=== PATIENT | female | born 1985 | race Caucasian/White ===

== ENCOUNTER → 2016-06-21 | Outpatient (CLI) | payer OTHER ==
[~2016-06-21] MED LIST: CEPHALEXIN500 M1 PO; ELIMITE 5%60 GM T; NAPROSYN500 MG PO; PREDNICOT10 MG PO; RANITIDINE300 MG PO
== END | disposition home or self-care (01) ==
LOC: US 14:40
DX: R19.8 Other specified symptoms and signs involving the digestive system and abdomen (principal); R10.2 Pelvic and perineal pain

== ENCOUNTER 2017-01-01 11:08 | Inpatient (IN) | payer OTHER ==
[~2017-01-01] VITALS: Ht 154.9 cm; Wt 80.9 kg
--- NOTE | ~2017-01-01 | O ---
[place], [place] OPERATIVE NOTE NAME: JAMIE FORTUNE UNIT #: [id number] ROOM: 503 DOCTOR: TE TORRES MD BIRTHDATE: [birth year] DOS: 01/02/2017 PREOPERATIVE DIAGNOSIS: Acute cholecystitis. POSTOPERATIVE DIAGNOSIS: Acute cholecystitis. PROCEDURE: Laparoscopic cholecystectomy. SURGEON: Te Torres MD GENERAL ASSEMBLER: GARLAND. ANESTHESIA: General with endotracheal intubation. INDICATIONS: This is a 31-year-old lady with history of right upper quadrant and lower chest pain who was diagnosed with acute cholecystitis. It was decided to take the patient to the operating room for the above-mentioned procedure. The procedure and its complications were explained to the patient in detail preoperatively. Complications that were discussed included but were not limited to bleeding, infection, hematoma/seroma/abscess formation, prolonged postoperative pain, damage to underlying vital structures, inadvertent injury to the common bile duct, incisional hernia formation, biloma formation and she agreed to proceed. DESCRIPTION OF PROCEDURE: After identifying the patient, the patient was brought to the operating suite and laid in the supine position. After induction of general anesthesia, the parts were then painted and draped in the usual sterile fashion. A time-out procedure was called. An incision was made below the umbilicus in a transverse fashion. The skin and the subcutaneous tissue were incised in the line of the incision. The fascia was grasped and incised vertically and 2 stay sutures were taken on either side. The peritoneum was opened and a 12 mm Randall port was introduced into the peritoneal cavity. Under direct vision, an epigastric incision of 10 mm and two 5 mm incisions were made in the right upper quadrant and appropriate size ports were introduced. The gallbladder was found to be extremely edematous and acutely inflamed. In order to better grasp the gallbladder, approximately 20 mL of thick bile was aspirated and sent for microbiological examination. Thereafter, the gallbladder was retracted superiorly and laterally. The cystic duct and the cystic artery were meticulously dissected. Thereafter, each of these structures was clipped 3 times and cut between the first and the second clip. The gallbladder was then removed from the bed of the gallbladder with the help of electrocautery. It was placed in an EndoCatch bag and removed from the peritoneal cavity and sent for histopathological diagnosis. Copious amounts of saline was used for irrigation and hemostasis was achieved in the liver bed with the help of electrocautery. Thereafter, 2 sheaths of Surgicel were placed in the liver bed in order to better achieve hemostasis after the procedure. The area was irrigated again and hemostasis was confirmed. A 19-Surinamese round Karlos-Diamond drain was inserted via the epigastric incision and placed in the gallbladder fossa and it was sutured to the overlying skin with the help of 4-0 nylon in interrupted fashion. Thereafter, the right upper quadrant 5 mm ports were removed and there was no [place], [place] OPERATIVE NOTE NAME: JAMIE FORTUNE UNIT #: [id number] ROOM: [facility] DOCTOR: TE TORRES MD BIRTHDATE: [birth year] bleeding seen. The umbilical port was also removed and the pneumoperitoneum was decompressed. The fascial defect was approximated with the help of a [id number] 0 Vicryl stitch. The skin edges were then approximated after local anesthesia was infiltrated with 4-0 Vicryl in a subcuticular running fashion. Dressings were placed in all the 4 incisions and the patient was extubated uneventfully and brought back to the recovery room in a stable fashion. There were no complications. Blood loss was [address] Te Torres, the attending surgeon, was present throughout the operating case. Te Torres MD CM:OPRECORD:OPERATIVE NOTE [id number] TE TORRES MD 01/02/171816 interface
[2017-01-01 11:10] VITALS: BP 163/108
[2017-01-01 11:56] LABS: BASO % 0.1 % (0.0-1.0); EOS # 0.1 10*3/uL (0.0-0.4); EOS % 0.7 % (1.0-4.0); HEMOGLOBIN 12.6 g/dl (12.0-16.0); LYMPH # 1.8 10*3/uL (1.3-4.4); LYMPH % 14.7 % (27.0-41.0); MEAN CORPUSCULAR HGB 29.3 pg (27.0-31.0); MEAN CORPUSCULAR HGB CONC 34.1 g/dl (33.0-37.0); MEAN PLATELET VOLUME 8.7 fl (9.6-12.3); MONO % 8.1 % (3.0-9.0); NEUT # 9.5 10*3/uL (2.3-7.9); NEUT % 76.1 % (47.0-73.0); PLATELET COUNT AUTOMATED 374 10*3/uL (130-400); RED CELL DISTRI WIDTH 12.3 % (0-14.5); WHITE BLOOD COUNT 12.5 10*3/uL (4.8-10.8)
[2017-01-01 12:00] VITALS: BP 158/69
[2017-01-01 12:04] LABS: ACT PARTIAL THROMBO TIME 27.1 SECONDS (20.8-31.5); INTERNATIONAL NORM RATIO 0.9 (2.0-3.5)
[2017-01-01 12:16] LABS: ALBUMIN 3.4 gm/dl (3.1-4.5); ALKALINE PHOSPHATASE 193 U/L (45-117); BUN 8 mg/dl (7-24); CHLORIDE 104 mmol/L (98-107); CREATININE 0.68 mg/dL (0.55-1.02); MAGNESIUM 2.2 mg/dL (1.5-2.1); POTASSIUM 3.4 mmol/L (3.5-5.1); SGOT/AST 31 IU/L (3-35); SGPT/ALT 44 U/L (12-78); SODIUM 138 mmol/L (136-145); TOTAL PROTEIN 7.5 gm/dL (6.4-8.2)
[2017-01-01 12:19] LABS: TROPONIN I < 0.015 ng/ml (<0.045)
[2017-01-01 12:30] VITALS: BP 137/91
[2017-01-01 15:19] LABS: BILIRUBIN NEGATIVE (NEGATIVE); BLOOD 1+ (NEGATIVE); CLARITY CLOUDY (CLEAR); COLOR YELLOW (YELLOW); GLUCOSE NEGATIVE (NEGATIVE); KETONE NEGATIVE (NEGATIVE); LEUKO ESTERASE 3+ (NEGATIVE); NITRITE NEGATIVE (NEGATIVE)
[2017-01-01 15:35] VITALS: BP 122/75
[2017-01-01] MEDS ORDERED: GAS-X125 MG PO (15:39)
[2017-01-01] MEDS ORDERED: PERIDEX118 ML MM (15:40)
[2017-01-01 15:51] LABS: EPITHELIAL CELLS 21-30; WBC 16-20 wbc/hpf (0-5)
[2017-01-01 15:52] LABS: BACTERIA 3+
[2017-01-01 17:21] VITALS: BP 125/78
[2017-01-01 20:00] VITALS: BP 134/81
[2017-01-02] VITALS (10 sets, daily range): BP systolic 113–150; BP diastolic 61–86
[2017-01-02 06:47] LABS: BASO % 0.2 % (0.0-1.0); EOS % 0.3 % (1.0-4.0); HEMATOCRIT 35.5 % (37.0-47.0); HEMOGLOBIN 11.9 g/dl (12.0-16.0); LYMPH # 2.1 10*3/uL (1.3-4.4); LYMPH % 17.1 % (27.0-41.0); MEAN CELL VOLUME 87.2 fl (81.0-99.0); MEAN CORPUSCULAR HGB 29.2 pg (27.0-31.0); MEAN CORPUSCULAR HGB CONC 33.5 g/dl (33.0-37.0); MONO # 0.8 10*3/uL (0.1-1.0); MONO % 6.4 % (3.0-9.0); NEUT # 9.2 10*3/uL (2.3-7.9); NEUT % 75.6 % (47.0-73.0); PLATELET COUNT AUTOMATED 361 10*3/uL (130-400); RED BLOOD COUNT 4.07 10*6/uL (4.10-5.10); RED CELL DISTRI WIDTH 12.2 % (0-14.5); WHITE BLOOD COUNT 12.2 10*3/uL (4.8-10.8)
[2017-01-02 06:58] LABS: BUN 6 mg/dl (7-24); CHLORIDE 104 mmol/L (98-107); CHOLESTEROL 209 mg/dL (<200); CREATININE 0.59 mg/dL (0.55-1.02); FREE T4 1.17 ng/dl (0.76-1.46); HDL CHOLESTEROL 42 mg/dl (40-60); LDL CHOLESTEROL 153 mg/dL (9-159); MAGNESIUM 1.9 mg/dL (1.5-2.1); PHOSPHOROUS 2.1 mg/dL (2.5-4.9); POTASSIUM 3.7 mmol/L (3.5-5.1); SODIUM 137 mmol/L (136-145); TRIGLYCERIDES 72 mg/dl (<150); VLDL CHOLESTEROL 14 mg/dL (6-40)
[2017-01-02 07:14] LABS: VITAMIN D, 25-HYDROXY 15.2 ng/mL (30-100)
[2017-01-02 17:14] LABS: HEMATOCRIT 34.4 % (37.0-47.0); HEMOGLOBIN 11.3 g/dl (12.0-16.0); MEAN CELL VOLUME 87.8 fl (81.0-99.0); MEAN CORPUSCULAR HGB 28.8 pg (27.0-31.0); MEAN CORPUSCULAR HGB CONC 32.8 g/dl (33.0-37.0); PLATELET COUNT AUTOMATED 402 10*3/uL (130-400); RED BLOOD COUNT 3.92 10*6/uL (4.10-5.10); RED CELL DISTRI WIDTH 12.3 % (0-14.5); WHITE BLOOD COUNT 15.5 10*3/uL (4.8-10.8)
[2017-01-02 17:30] LABS: ALBUMIN 2.6 gm/dl (3.1-4.5); ALKALINE PHOSPHATASE 193 U/L (45-117); BUN 6 mg/dl (7-24); CHLORIDE 106 mmol/L (98-107); CREATININE 0.62 mg/dL (0.55-1.02); POTASSIUM 4.2 mmol/L (3.5-5.1); SGOT/AST 90 IU/L (3-35); SGPT/ALT 75 U/L (12-78); SODIUM 138 mmol/L (136-145); TOTAL PROTEIN 6.9 gm/dL (6.4-8.2)
[2017-01-02 17:33] LABS: PLATELET SUFFICIENCY HIGH (NORMAL); TOTAL CELLS COUNTED 100 #CELLS
[2017-01-02 17:34] LABS: POLYCHROMASIA SLIGHT
[2017-01-03] VITALS: BP 134/83
[2017-01-03 06:30] LABS: HEMATOCRIT 28.8 % (37.0-47.0); HEMOGLOBIN 9.6 g/dl (12.0-16.0); LYMPH # 1.4 10*3/uL (1.3-4.4); LYMPH % 12.4 % (27.0-41.0); MEAN CELL VOLUME 87.3 fl (81.0-99.0); MEAN CORPUSCULAR HGB 29.1 pg (27.0-31.0); MEAN CORPUSCULAR HGB CONC 33.3 g/dl (33.0-37.0); MEAN PLATELET VOLUME 9.2 fl (9.6-12.3); MONO # 0.7 10*3/uL (0.1-1.0); MONO % 6.5 % (3.0-9.0); NEUT % 80.5 % (47.0-73.0); PLATELET COUNT AUTOMATED 388 10*3/uL (130-400); RED CELL DISTRI WIDTH 12.3 % (0-14.5); WHITE BLOOD COUNT 11.1 10*3/uL (4.8-10.8)
[2017-01-03 06:59] LABS: BUN 8 mg/dl (7-24); CHLORIDE 107 mmol/L (98-107); CREATININE 0.48 mg/dL (0.55-1.02); POTASSIUM 3.9 mmol/L (3.5-5.1); SODIUM 140 mmol/L (136-145)
[2017-01-03 08:00] VITALS: BP 124/53
[2017-01-03 09:14] LABS: ALBUMIN 2.4 gm/dl (3.1-4.5); TOTAL PROTEIN 6.6 gm/dL (6.4-8.2)
[2017-01-03 09:15] LABS: ALKALINE PHOSPHATASE 156 U/L (45-117); BILIRUBIN, DIRECT 0.2 mg/dL (0.0-0.2); SGOT/AST 60 IU/L (3-35); SGPT/ALT 60 U/L (12-78)
[2017-01-03 09:40] LABS: ALBUMIN 2.6 gm/dl (3.1-4.5); ALKALINE PHOSPHATASE 146 U/L (45-117); BUN 10 mg/dl (7-24); CHLORIDE 106 mmol/L (98-107); CREATININE 0.67 mg/dL (0.55-1.02); POTASSIUM 3.5 mmol/L (3.5-5.1); SGOT/AST 59 IU/L (3-35); SGPT/ALT 61 U/L (12-78); SODIUM 139 mmol/L (136-145); TOTAL PROTEIN 6.6 gm/dL (6.4-8.2)
[2017-01-03] MEDS ORDERED: NORCO 5/325 PO (11:59)
[2017-01-03] MEDS ORDERED: VITAMIN D-32000 UNIT PO (11:59)
[2017-01-03 12:00] VITALS: BP 116/59
== END 2017-01-03 13:31 | disposition home or self-care (01) | DRG 853 ==
LOC: ED 11:08 → EDHOLD 12:43 → 5E 12:43
PROVIDERS: Emergency Medicine; Internal Medicine; Surgery; ADMIT Internal Medicine
PROC: 0FT44ZZ Resection of Gallbladder, Percutaneous Endoscopic Approach (ICD-10-PCS; principal; 2017-01-02)
DX: A41.9 Sepsis, unspecified organism (principal); E43 Unspecified severe protein-calorie malnutrition; K80.62 Calculus of gallbladder and bile duct with acute cholecystitis without obstruction; E83.41 Hypermagnesemia; E83.39 Other disorders of phosphorus metabolism; E66.09 Other obesity due to excess calories; E87.6 Hypokalemia; K21.9 Gastro-esophageal reflux disease without esophagitis; F41.9 Anxiety disorder, unspecified; R07.89 Other chest pain; I20.9 Angina pectoris, unspecified; R73.9 Hyperglycemia, unspecified; R31.9 Hematuria, unspecified; D64.9 Anemia, unspecified; D72.825 Bandemia; Z79.899 Other long term (current) drug therapy; Z82.49 Family history of ischemic heart disease and other diseases of the circulatory system; Z90.49 Acquired absence of other specified parts of digestive tract; Z98.51 Tubal ligation status; Z83.3 Family history of diabetes mellitus; Z80.8 Family history of malignant neoplasm of other organs or systems; Z68.33 Body mass index [BMI] 33.0-33.9, adult

== ENCOUNTER → 2017-05-21 | Outpatient (CLI) | payer OTHER ==
[~2017-05-21] MED LIST changes: +GAS-X125 MG PO; +NORCO 5/325 PO; +PERIDEX118 ML MM; +VITAMIN D-32000 UNIT PO
== END | disposition home or self-care (01) ==
LOC: US 05-19 07:30
DX: K76.0 Fatty (change of) liver, not elsewhere classified (principal); R79.89 Other specified abnormal findings of blood chemistry; Z90.49 Acquired absence of other specified parts of digestive tract

== ENCOUNTER → 2017-07-24 | Outpatient (CLI) | payer OTHER ==
[2017-07-24 09:26] LABS: ALBUMIN 3.6 gm/dl (3.1-4.5); LIPASE 81 U/L (73-393); SGOT/AST 34 IU/L (3-35); SGPT/ALT 61 U/L (12-78)
[2017-07-24 09:30] LABS: ALKALINE PHOSPHATASE 185 U/L (45-117); BILIRUBIN, DIRECT < 0.1 mg/dL (0.0-0.2); TOTAL PROTEIN 7.4 gm/dL (6.4-8.2)
== END | disposition home or self-care (01) ==
LOC: LAB 08:31
PROVIDERS: Internal Medicine Gastroenterology
DX: R94.5 Abnormal results of liver function studies (principal)

== ENCOUNTER 2017-07-30 08:47 | Emergency (ER) | payer OTHER ==
[~2017-07-30] VITALS: Ht 154.9 cm; Wt 81.6 kg
[2017-07-30 09:38] LABS: BASO % 0.3 % (0.0-1.0); EOS # 0.1 10*3/uL (0.0-0.4); EOS % 1.2 % (1.0-4.0); HEMATOCRIT 39.2 % (37.0-47.0); HEMOGLOBIN 13.1 g/dl (12.0-16.0); LYMPH # 1.9 10*3/uL (1.3-4.4); MEAN CELL VOLUME 85.6 fl (81.0-99.0); MEAN CORPUSCULAR HGB 28.6 pg (27.0-31.0); MEAN CORPUSCULAR HGB CONC 33.4 g/dl (33.0-37.0); MEAN PLATELET VOLUME 8.7 fl (9.6-12.3); MONO # 0.3 10*3/uL (0.1-1.0); MONO % 5.8 % (3.0-9.0); NEUT # 3.5 10*3/uL (2.3-7.9); NEUT % 59.5 % (47.0-73.0); PLATELET COUNT AUTOMATED 440 10*3/uL (130-400); RED BLOOD COUNT 4.58 10*6/uL (4.10-5.10); RED CELL DISTRI WIDTH 12.4 % (0-14.5); WHITE BLOOD COUNT 5.8 10*3/uL (4.8-10.8)
[2017-07-30 09:50] LABS: BILIRUBIN NEGATIVE (NEGATIVE); BLOOD NEGATIVE (NEGATIVE); CLARITY SL CLOUDY (CLEAR); COLOR YELLOW (YELLOW); GLUCOSE NEGATIVE (NEGATIVE); KETONE NEGATIVE (NEGATIVE); LEUKO ESTERASE NEGATIVE (NEGATIVE); NITRITE NEGATIVE (NEGATIVE); PH 5.5 (5.0-9.0); SPECIFIC GRAVITY <= 1.005 (1.005-1.030); UROBILINOGEN 0.2 E.U./dl (0.2-1.0)
[2017-07-30 09:53] LABS: ALBUMIN 3.4 gm/dl (3.1-4.5); ALKALINE PHOSPHATASE 181 U/L (45-117); BUN 6 mg/dl (7-24); CHLORIDE 106 mmol/L (98-107); CREATININE 0.67 mg/dL (0.55-1.02); LIPASE 74 U/L (73-393); POTASSIUM 3.5 mmol/L (3.5-5.1); SGOT/AST 43 IU/L (3-35); SGPT/ALT 63 U/L (12-78); SODIUM 141 mmol/L (136-145); TOTAL PROTEIN 7.2 gm/dL (6.4-8.2)
[2017-07-30 10:04] LABS: BACTERIA 1+; RBC 0-2 rbc/hpf (0-2)
[2017-08-01] MEDS ORDERED: RANITIDINE 7575 MG PO (12:03)
== END 2017-07-30 11:58 | disposition home or self-care (01) ==
LOC: ED 08:47
PROVIDERS: Emergency Medicine
DX: R10.12 Left upper quadrant pain (principal); R10.13 Epigastric pain; E66.9 Obesity, unspecified; Z98.51 Tubal ligation status; Z90.49 Acquired absence of other specified parts of digestive tract; Z98.890 Other specified postprocedural states; Z79.899 Other long term (current) drug therapy

== ENCOUNTER → 2017-08-06 | Day surgery (SDC) | payer OTHER ==
[~2017-08-06] VITALS: Ht 154.9 cm; Wt 81.6 kg
[~2017-08-06] MED LIST changes: +OMEPRAZOLE MAGN20 MG PO; +RANITIDINE 7575 MG PO
--- NOTE | ~2017-08-06 | O ---
[place], [place] OPERATIVE NOTE NAME: JAMIE FORTUNE UNIT #: [id number] ROOM: DOCTOR: TAYLER WOLFE MD BIRTHDATE: [birth year] DOS: 08/06/2017 SUBJECTIVE: A 32-year-old patient who presented with chief complaint of epigastric distress, dyspepsia as well. The patient has been on ranitidine, not helping much. The patient also had abnormal liver function test. She was on Crestor, Crestor has been placed on hold for repeat reevaluation of the biopsy is pending. The patient has been given Carafate, ranitidine, omeprazole as outpatient, she is listing on her medication list. ALLERGIES: No known medication. FAMILY HISTORY: Noncontributory. SOCIAL HISTORY: Nonsmoker, nonalcohol consumer. PAST SURGICAL HISTORY: Tubal ligation, ear tubes, teeth extraction, cholecystectomy. PROCEDURE: Today's procedure part of investigation is panendoscopy plus biopsy. PREMEDICATION: Versed and propofol. SCOPE: Olympus forward-viewing gastroscope Q10 video. REPORT: After putting the patient in left lateral position and application of lubricant to the scope, the scope was introduced under direct visualization, advanced through the length of esophagus without difficulty. Small hiatal hernia was noticed. Gastric pouch was entered. Gastritis was seen. Duodenal bulb, second and third part within normal limits. Antrum was biopsied. The patient extubated, tolerated procedure well. IMPRESSION: Gastritis, small hiatal hernia, status post biopsy. PLAN AND DISCUSSION: Omeprazole 20 mg 1 every day, would suffice. Management, her antacid of choice becomes Extra Strength, Gaviscon tablets 1 at bedtime, elevation of the head of the bed 6 inch all time. Follow up as outpatient for assessment of the results of the biopsies. [place], [place] OPERATIVE NOTE NAME: JAMIE FORTUNE UNIT #: [id number] ROOM: DOCTOR: TAYLER WOLFE MD BIRTHDATE: [birth year] TAYLER WOLFE MD CM:OPRECORD:OPERATIVE NOTE 1121 1342 TAYLER WOLFE MD 08/06/17 1341 interface
[2017-08-06 10:30] VITALS: BP 147/98
[2017-08-06 11:17] VITALS: BP 118/67
[2017-08-06 11:32] VITALS: BP 112/70
[2017-08-06 11:47] VITALS: BP 110/68
== END | disposition home or self-care (01) ==
LOC: SDC 08-01 11:00
DX: K29.50 Unspecified chronic gastritis without bleeding (principal); Z98.51 Tubal ligation status; Z90.49 Acquired absence of other specified parts of digestive tract; K21.9 Gastro-esophageal reflux disease without esophagitis; J45.909 Unspecified asthma, uncomplicated

== ENCOUNTER 2019-12-08 20:02 | Emergency (ER) | payer OTHER ==
[~2019-12-08] VITALS: Ht 152.4 cm; Wt 81.6 kg
== END 2019-12-08 21:02 | disposition home or self-care (01) ==
LOC: ED 20:02
DX: H57.89 Other specified disorders of eye and adnexa (principal); Z79.899 Other long term (current) drug therapy

== ENCOUNTER 2021-05-16 16:51 | Emergency (ER) | payer OTHER ==
[2021-05-16] MEDS ORDERED: HYDROCODONE-AC1 EAC1 PO (17:24)
[2021-05-16] MEDS ORDERED: CEPHALEXIN500 M1 PO (17:24)
[2021-05-16] MEDS ORDERED: SEPTDS PO (17:24)
== END 2021-05-16 17:35 | disposition home or self-care (01) ==
LOC: ED 16:51
DX: L02.31 Cutaneous abscess of buttock (principal); Z98.51 Tubal ligation status; Z90.49 Acquired absence of other specified parts of digestive tract; Z90.89 Acquired absence of other organs; Z79.899 Other long term (current) drug therapy

== ENCOUNTER → 2022-10-07 | Outpatient (CLI) | payer OTHER ==
[~2022-10-07] MED LIST changes: +HYDROCODONE-AC1 EAC1 PO; +SEPTDS PO
[2022-10-07 13:23] LABS: BASO % 0.1 % (0.0-1.0); EOS # 0.3 10*3/uL (0.0-0.4); EOS % 3.7 % (1.0-4.0); HEMATOCRIT 36.7 % (37.0-47.0); LYMPH # 2.1 10*3/uL (1.3-4.4); LYMPH % 27.7 % (27.0-41.0); MEAN CELL VOLUME 87.4 fl (81.0-99.0); MEAN CORPUSCULAR HGB 28.3 pg (27.0-31.0); MEAN CORPUSCULAR HGB CONC 32.4 g/dl (33.0-37.0); MEAN PLATELET VOLUME 9.2 fl (9.6-12.3); MONO # 0.3 10*3/uL (0.1-1.0); MONO % 4.5 % (3.0-9.0); NEUT # 4.8 10*3/uL (2.3-7.9); NEUT % 63.9 % (47.0-73.0); PLATELET COUNT AUTOMATED 465 10*3/uL (130-400); RED CELL DISTRI WIDTH 12.9 % (0-14.5); RETICULOCYTE % 1.58 % (0.50-2.50); WHITE BLOOD COUNT 7.5 10*3/uL (4.8-10.8)
[2022-10-07 13:30] LABS: BILIRUBIN Negative (Negative); BLOOD Negative (Negative); CLARITY Clear (Clear); COLOR Yellow (Yellow); GLUCOSE Negative (Negative); KETONE Negative (Negative); LEUKO ESTERASE Negative (Negative); NITRITE Negative (Negative); SPECIFIC GRAVITY 1.015 (1.001-1.030); UROBILINOGEN 0.2 E.U./dl (0.0-1.0)
[2022-10-07 13:39] LABS: WBC 0-2 wbc/hpf (0-5)
[2022-10-07 13:59] LABS: ALKALINE PHOSPHATASE 157 U/L (46-116); BUN 6 mg/dl (9-23); CHLORIDE 106 mmol/L (98-107); CHOLESTEROL 200 mg/dL (<200); GAMMA GLUTAMYL TRANSPEPTIDASE 38 U/L (0-73); LDL CHOLESTEROL 123 mg/dL (9-159); POTASSIUM 3.8 mmol/L (3.4-5.1); SGPT/ALT 40 U/L (10-49); T3 UPTAKE 22.7 % (22.4-36.7); THYROID STIM HORMONE (HS) 2.402 uIU/ml (0.550-4.780); THYROXINE (T4) TOTAL 8.4 ug/dl (4.5-10.9); TOTAL PROTEIN 6.7 gm/dL (6.0-8.0); TRIGLYCERIDES 201 mg/dl (<150); VITAMIN D, 25-HYDROXY 37.3 ng/mL (30-100)
[2022-10-07 14:09] LABS: BASOPHILS 2 % (0-1); PLATELET SUFFICIENCY HIGH (NORMAL); TOTAL CELLS COUNTED 100 #CELLS
[2022-10-08 05:06] LABS: TOTAL PROTEIN, SERUM 6.5 g/dL (6.0-8.5)
[2022-10-09 12:07] LABS: A/G RATIO 1.2 (0.7-1.7); ALBUMIN 3.5 g/dL (2.9-4.4); ALPHA-1-GLOBULIN 0.2 g/dL (0.0-0.4); ALPHA-2-GLOBULIN 0.8 g/dL (0.4-1.0); M-SPIKE Not Observed g/dL (Not Observed)
== END | disposition home or self-care (01) ==
LOC: LAB 12:45
PROVIDERS: ATTEND Family Medicine
DX: R79.89 Other specified abnormal findings of blood chemistry (principal); R53.83 Other fatigue; R74.8 Abnormal levels of other serum enzymes; E55.9 Vitamin D deficiency, unspecified

== ENCOUNTER 2022-11-29 19:03 | Emergency (ER) | payer OTHER ==
[~2022-11-29] VITALS: Ht 154.9 cm; Wt 78.5 kg
[2022-11-29] MEDS ORDERED: AMOX-CLAV 875-1 EACH PO (19:22)
[2022-11-29] MEDS ORDERED: PREDNISONE20 M1 PO (19:22)
== END 2022-11-29 19:42 | disposition home or self-care (01) ==
LOC: ED 19:03
DX: H66.92 Otitis media, unspecified, left ear (principal); I10 Essential (primary) hypertension; Z79.2 Long term (current) use of antibiotics; Z79.899 Other long term (current) drug therapy; Z90.89 Acquired absence of other organs; Z98.51 Tubal ligation status; Z90.49 Acquired absence of other specified parts of digestive tract

== ENCOUNTER 2023-01-07 16:33 | Emergency (ER) | payer OTHER ==
[~2023-01-07] VITALS: Ht 154.9 cm; Wt 81.6 kg
[~2023-01-07 16:33] MED LIST changes: +AMOX-CLAV 875-1 EACH PO; +PREDNISONE20 M1 PO
== END 2023-01-07 19:15 | disposition home or self-care (01) ==
LOC: ED 16:33
DX: H11.31 Conjunctival hemorrhage, right eye (principal); R73.9 Hyperglycemia, unspecified; E83.41 Hypermagnesemia; E87.6 Hypokalemia; E83.39 Other disorders of phosphorus metabolism; D64.9 Anemia, unspecified; Z90.49 Acquired absence of other specified parts of digestive tract; Z90.89 Acquired absence of other organs; Z98.51 Tubal ligation status; Z98.890 Other specified postprocedural states

== ENCOUNTER 2023-06-07 16:33 | Emergency (ER) | payer OTHER ==
[~2023-06-07] VITALS: Ht 154.9 cm; Wt 81.6 kg
[2023-06-07] MEDS ORDERED: ACETAMINOPHEN 325 MG TAB PO ONE (16:55)
[2023-06-07] MEDS ORDERED: MELOXICAM15 MG PO (17:21)
== END 2023-06-07 17:31 | disposition home or self-care (01) ==
LOC: ED 16:33
DX: M25.561 Pain in right knee (principal); Z79.899 Other long term (current) drug therapy; Z96.22 Myringotomy tube(s) status; Z90.89 Acquired absence of other organs; Z98.51 Tubal ligation status; Z90.49 Acquired absence of other specified parts of digestive tract

== ENCOUNTER 2023-10-03 19:42 | Emergency (ER) | payer OTHER ==
[~2023-10-03] VITALS: Wt 83.0 kg
[~2023-10-03 19:42] MED LIST changes: +ALBUTEROL2.5 MG/0.5 INH; +CIPRO500 MG PO; +MELOXICAM15 MG PO; +PROVENTIL HFA6.7 GM INH
[2023-10-03] MEDS ORDERED: PREDNISONE20 M1 PO (20:33)
[2023-10-03] MEDS ORDERED: methylPREDNISolone sod succ 125 MG VIAL IM ONE (20:35)
== END 2023-10-03 21:04 | disposition home or self-care (01) ==
LOC: ED 19:42
DX: L23.7 Allergic contact dermatitis due to plants, except food (principal); J45.909 Unspecified asthma, uncomplicated; R73.9 Hyperglycemia, unspecified; E83.41 Hypermagnesemia; E87.6 Hypokalemia; E83.39 Other disorders of phosphorus metabolism; D64.9 Anemia, unspecified; Z90.89 Acquired absence of other organs; Z98.51 Tubal ligation status; Z90.49 Acquired absence of other specified parts of digestive tract; Z98.890 Other specified postprocedural states

== ENCOUNTER 2023-11-17 20:03 | Emergency (ER) | payer OTHER ==
[~2023-11-17] VITALS: Ht 154.9 cm; Wt 81.6 kg
== END 2023-11-17 21:57 | disposition home or self-care (01) ==
LOC: ED 20:03
DX: S46.912A Strain of unspecified muscle, fascia and tendon at shoulder and upper arm level, left arm, initial encounter (principal); J45.909 Unspecified asthma, uncomplicated; E87.6 Hypokalemia; D64.9 Anemia, unspecified; Z90.89 Acquired absence of other organs; Z98.51 Tubal ligation status; Z90.49 Acquired absence of other specified parts of digestive tract; Z98.890 Other specified postprocedural states; X50.0XXA Overexertion from strenuous movement or load, initial encounter; Y93.89 Activity, other specified; Y92.89 Other specified places as the place of occurrence of the external cause; Y99.8 Other external cause status

== ENCOUNTER 2024-03-14 10:31 | Emergency (ER) | payer OTHER ==
[~2024-03-14] VITALS: Ht 165.1 cm; Wt 90.7 kg
[2024-03-14] MEDS ORDERED: PREDNISONE20 M1 PO (11:08)
[2024-03-14] MEDS ORDERED: methylPREDNISolone sod succ 125 MG VIAL IM ONE (11:10)
== END 2024-03-14 11:02 | disposition home or self-care (01) ==
LOC: ED 10:31
DX: L25.9 Unspecified contact dermatitis, unspecified cause (principal); Z90.89 Acquired absence of other organs; Z90.49 Acquired absence of other specified parts of digestive tract; Z98.51 Tubal ligation status; Z98.890 Other specified postprocedural states

== ENCOUNTER 2024-05-08 18:15 | Emergency (ER) | payer OTHER ==
[~2024-05-08] VITALS: Ht 154.9 cm; Wt 82.2 kg
[2024-05-08] MEDS ORDERED: NEO/POLYMYX B SULF/DEXAMETH 200 DRP BOT OT ONE (19:10)
[2024-05-08] MEDS ORDERED: Amoxicillin/Clavulanate Pota 875 MG TAB PO ONE (19:10)
[2024-05-09] MEDS ORDERED: AMOX-CLAV 875-1 EACH PO (13:08)
== END 2024-05-08 19:21 | disposition home or self-care (01) ==
LOC: ED 18:15
DX: H66.92 Otitis media, unspecified, left ear (principal); Z79.899 Other long term (current) drug therapy; Z90.710 Acquired absence of both cervix and uterus

== ENCOUNTER 2024-11-09 17:10 | Emergency (ER) | payer MEDICAID ==
[~2024-11-09] VITALS: Ht 154.9 cm; Wt 81.6 kg
[2024-11-09] MEDS ORDERED: NAPROSYN500 MG PO (21:40)
[2024-11-09] MEDS ORDERED: MEDROL DOSEPAK4 MG PO (21:40)
[2024-11-09] MEDS ORDERED: ZANAFLEX4 MG PO (21:40)
== END 2024-11-09 21:51 | disposition home or self-care (01) ==
LOC: ED 17:10
DX: S39.012A Strain of muscle, fascia and tendon of lower back, initial encounter (principal); K21.9 Gastro-esophageal reflux disease without esophagitis; Z79.899 Other long term (current) drug therapy; Z90.49 Acquired absence of other specified parts of digestive tract; Z98.51 Tubal ligation status; Z90.89 Acquired absence of other organs; Z98.890 Other specified postprocedural states; X58.XXXA Exposure to other specified factors, initial encounter; Y93.89 Activity, other specified; Y92.89 Other specified places as the place of occurrence of the external cause; Y99.8 Other external cause status